=== PATIENT | male | born 1995 | race Caucasian/White ===

== ENCOUNTER 2020-05-26 13:14 | Emergency (ER) | payer OTHER, BC, SELFPAY ==
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
[2020-05-26 13:26] VITALS: BP 121/73; BP 140/70; PULSE 73; PULSE 77; RESP 16; TEMP 37.3; O2SAT 99; BMI 20.3
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
[2020-05-26 14:19] LABS: Basophils Percent Auto 0.2 % (0-2); Hematocrit 44.7 % (42-52); Hemoglobin 15.7 g/dl (14.0-18.0); Imm Gran Abs Auto 0.04 X10*3/uL (0.00-0.03); Imm Gran Pct Auto 0.3 % (0.0-0.4); Lymphocytes Absolute Auto 0.9 X10*3/uL (1.2-4.9); Lymphocytes Percent Auto 6.3 % (20-40); MANUAL DIFF FLAG NO; Mean Corpuscular HGB Conc 35.1 g/dl (31.0-36.0); Mean Corpuscular Volume 88.3 fL (80-98); Mean Platelet Volume 8.5 fL (9.4-12.4); Monocytes Absolute Auto 0.6 X10*3/uL (0.1-1.2); Monocytes Percent Auto 4.1 % (2-11); Neutrophils Absolute Auto 13.1 X10*3/uL (2.0-8.3); Neutrophils Percent Auto 89.1 % (45-73); Platelet Count 452 X10*3/uL (160-400); Red Blood Count 5.06 X10*6/uL (4.60-5.80); Red Cell Distribution Width 12.6 % (11.0-16.0); White Blood Count 14.7 X10*3/uL (4.8-10.8)
[2020-05-26 14:32] VITALS: RESP 16
--- NOTE | 2020-05-26 14:40 | PC.NURSE ---
pt is aox3 speaking in full clear sentences skin pale and clammy. pt reports withdrawal from heroin. goose bumps and tremors noted. pt denied nausea or hallucinations. pt denies etoh use, pupils dialted and eyes are glossy. pt continues to refuse c-collar. all labs sent. ivf infusing.
[2020-05-26] MEDS: 0.9 % Sodium Chloride 500 ML 1000 ML IV (14:43)
[2020-05-26 14:46] LABS: Ethanol < 10 mg/dL
[2020-05-26 14:50] LABS: Alanine Aminotransferase 21 U/L (0-40); Albumin Level 5.1 g/dL (3.5-5.0); Alkaline Phosphatase 69 U/L (39-117); Anion Gap 16 (12-20); Aspartate Amino Transferase 18 U/L (5-37); Bilirubin Total 0.7 mg/dL (0.0-1.0); Blood Urea Nitrogen 13 mg/dL (9-16); Calcium 10.1 mg/dL (8.4-10.2); Carbon Dioxide 27 mmol/L (22-29); Chloride 100 mmol/L (96-108); Creatinine Clr Calc Pharmacy 92.3; Estimated Glomerular Filt Rate > 60; Glucose Random 132 mg/dL (60-115); Potassium 4.4 mmol/l (3.3-5.1); Sodium 139 mmol/L (135-145)
[2020-05-26 14:54] LABS: Troponin-I High Sensitivity < 3.5 ng/L (<3.5-35.0)
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
[2020-05-26] MEDS: cloNIDine HCL 0.1 MG TABLET PO (15:52)
== END 2020-05-26 16:53 | disposition home or self-care (01) ==
PROVIDERS: Nurse Practitioner Primary Care; Emergency Provider Emergency Medicine
DX: S80.01XA Contusion of right knee, initial encounter (principal); V43.52XA Car driver injured in collision with other type car in traffic accident, initial encounter; F11.10 Opioid abuse, uncomplicated; F17.200 Nicotine dependence, unspecified, uncomplicated; Y93.89 Activity, other specified; Y92.414 Local residential or business street as the place of occurrence of the external cause; Y99.9 Unspecified external cause status
CPT/HCPCS: 36415; 70450; 71045; 72125; 73564; 80053; 80320; 84484; 85025; 93005; 96360; 99284; 99285